=== PATIENT | female | born 1960 | race Caucasian/White ===

== ENCOUNTER 2021-07-07 09:55 | Day surgery (SDC) | payer BC ==
[2021-07-07 10:24] LABS: MPV 8.6 fL (7.6-11.3)
[2021-07-07 10:32] LABS: Protime INR 0.87
[2021-07-07 10:33] VITALS: BMI 26.1
[2021-07-07 12:44] VITALS: TEMP 98; O2SAT 100
--- NOTE | 2021-07-07 13:09 | RAD REPORT ---
EXAM DESCRIPTION: RAD - Lumbar Puncture For Dx - 07/07/2021 1:03 pm CLINICAL HISTORY: MS COMPARISON: None. TECHNIQUE: The procedure, risks and alternatives to the procedure were discussed with the patient in detail. After answering all questions, both oral and written consent were obtained. Time-out procedu re was performed. The patient was placed in an oblique prone position on the fluoroscopic table. The skin of the lower back was prepped and draped in the usual sterile fashion. After anesthetizing the skin and deeper sof t tissues with 1% lidocaine, a 22 gauge needle was advanced into the thecal sac at the L2-3 level. At the conclusion of the procedure the needle was withdrawn and a sterile bandage placed over the pun cture site. The patient tolerated the procedure well without immediate complications. Post-procedure care and precaution instructions were discussed with the patient before the LP procedure. IMPRESSION: Successful fluoroscopic guided lumbar puncture. All obtained fluid was sent to the lab f or studies requested by the referring physician.
[2021-07-07 13:55] LABS: CSF Glucose 92 mg/dL (40-70)
[2021-07-07 14:29] VITALS: BP 115/52
[2021-07-07 14:46] LABS: Appearance CLEAR (CLEAR); Body Fluid Source CSF; Body Fluid WBC 1 /mm^3; Color of fluid Colorless (COLORLESS); Fluid Total Volume 11.5 ml
== END 2021-07-07 14:20 | disposition home or self-care (01) ==
LOC: DS 09:55 → EDSTATUS 11:00 → DS 14:20
PROVIDERS: ATTEND Psychiatry & Neurology Neurology with Special Qualifications in Child Neurology
PROC: 009U3ZX Drainage of Spinal Canal, Percutaneous Approach, Diagnostic (ICD-10-PCS; principal; 2021-07-07)
DX: G35 Multiple sclerosis (principal)
CPT/HCPCS: 36415; 62328; 77003; 82040; 82042; 82164; 82784; 82945; 83873; 83916; 84157; 84166; 85049; 85610; 85730; 86592; 86617; 87015; 87116; 87206; 88108; 88305; 89050

== ENCOUNTER 2024-03-06 08:52 | Day surgery (SDC) | payer OTHER ==
[2024-03-04 10:49] LABS: Absolute Eosinophils 0.1 K/uL (0-0.5); Absolute Monocytes 0.5 K/uL (0.1-1.3); Absolute Neutrophil 4.3 K/uL (1.8-8.0); Basophils % 0.6 % (0-1.3); Eosinophils % 1.9 % (0-4.4); Hematocrit 37.8 % (36.0-45.0); Hemoglobin 12.8 g/dL (12.0-15.0); Lymphocytes % 16.9 % (15.3-44.8); MCH 28.8 pg (27.0-35.0); MCHC 33.8 g/dL (32.0-36.0); MCV 85.2 fL (80-100); MPV 9.7 fL (7.6-11.3); Monocytes % 8.5 % (3.3-12.3); Neutrophils % 72.1 % (41.7-73.7); Nucleated Red Blood Cells % 0.1 % (0-0); Platelets 150 thou/uL (152-406); RBC Red Blood Cell Count 4.43 M/uL (3.86-4.86)
[2024-03-04 11:06] LABS: Anion Gap 7.8 mEq/L (5.0-15.0); Potassium 4.8 mEq/L (3.5-5.1)
--- NOTE | 2024-03-04 14:45 | EKG ---
Test Date: 2024-03-04 Test Time: 09:54:38 Gas Blender: DANE MEASUREMENT RESULTS: Intervals: Rate: 56 [place]: 152 QRSD: 80 QT: 408 QTc: 393 [place]: P: 73 [place]: 152 QRS: 44 T: 66 INTERPRETIVE STATEMENTS: Sinus bradycardia Otherwise normal ECG No previous ECG available for comparison Electronically Signed On 03-04-24 14:45:10 CDT by Shun Aguilar
[2024-03-06] MEDS: NA CHLORIDE 0.9% 1,000 ML ONE (09:20)
[2024-03-06] MEDS ORDERED: LIDOCAINE 1% MPF 5 ML VIAL ONE (11:01)
[2024-03-06] MEDS ORDERED: propofoL 200 MG/20 ML VIAL IV ONE (11:01)
[2024-03-06 12:01] VITALS: TEMP 97.8
[2024-03-06 12:39] VITALS: BP 126/61; O2SAT 98
== END 2024-03-06 12:30 | disposition home or self-care (01) ==
LOC: OR 08:52
PROVIDERS: ATTEND Surgery
PROC: 0DJD8ZZ Inspection of Lower Intestinal Tract, Via Natural or Artificial Opening Endoscopic (ICD-10-PCS; principal; 2024-03-06 10:15)
DX: Z12.11 Encounter for screening for malignant neoplasm of colon (principal); I10 Essential (primary) hypertension; E11.9 Type 2 diabetes mellitus without complications; E78.00 Pure hypercholesterolemia, unspecified; K57.30 Diverticulosis of large intestine without perforation or abscess without bleeding; K64.8 Other hemorrhoids; Z85.828 Personal history of other malignant neoplasm of skin
CPT/HCPCS: 93005; 85025; 80048; 36415; 82947; J2704; J2003; J7030; G0121